=== PATIENT | female | born 1950 ===

== ENCOUNTER → 2018-06-12 13:17 | Outpatient (REF) | payer SELFPAY ==
[2018-06-12 13:45] LABS: Cholesterol 211 mg/dL (140-199); HDL Cholesterol 55 mg/dL (40-60); LDL Cholesterol Calculated 134 mg/dL (<100); Triglycerides 111 mg/dL (35-150)
[2018-06-12 13:49] LABS: Hematocrit 41.3 % (36-46); High Sensitivity CRP - Cardiac 1.9 mg/L (1.0-3.0); Mean Corpuscular HGB Conc 33.8 % (30-36); Mean Corpuscular Hemoglobin 31.9 PG (26-34); Mean Corpuscular Volume 94.2 fL (80-100); Platelet Count 188 X10^3/uL (150-400); Red Blood Cell Count 4.39 X10^6/uL (4.0-5.2); Red Cell Distribution Width 12.9 % (11.6-14.8); White Blood Cell Count 3.3 X10^3/uL (4.5-11.0)
[2018-06-12 14:03] LABS: Free T3, Triiodothyronine Free 5.37 pg/mL (2.77-5.27)
[2018-06-12 14:16] LABS: Thyroid Stimulating Hormone 0.61 uIU/mL (0.47-4.68)
== END ==
LOC: LAB 13:17
PROVIDERS: Visit Provider Naturopath
DX: E78.00 Pure hypercholesterolemia, unspecified (principal); E03.9 Hypothyroidism, unspecified; R79.82 Elevated C-reactive protein (CRP); R71.8 Other abnormality of red blood cells
CPT/HCPCS: 36415; 80061; 84439; 84443; 84481; 85027; 86140